=== PATIENT | female | born 1990 | race Caucasian/White ===

== ENCOUNTER 2019-04-04 05:43 | Inpatient (IN) ==
--- NOTE | 2019-04-03 18:11 | History & Physical Report ---
Date of Service April 03, 2019 Assessment & Plan (1) History of pre-eclampsia in prior , currently : (2) History of classical section: IUP at 36 6/7 weeks for repeat section because of prior classical section. The procedure, and it 's risks were reviewed with the patient and all of her questions were answered to her satisfaction. Please see orders for further information. Present on Admission?: Yes History of Present Illness Chief Complaint: For repat at 36 + weeks Primary Care Provider: NO PCP Patient is a 28 yo white female EDC 04/25/19 who presents at 36 6/7 weeks for repeat . Her first delivery was by at 34+ weeks for severe pre-eclampsia and was a classical type incision on the uterus. She received 2 doses of Celestone last week in preparation for the . has been otherwise uncomplicated except for a fluid collection in the placenta which required an MFM consult. Their only recommendation was to do a growth scan at 32 weeks which was normal Allergies Allergy/AdvReac Type Severity Reaction Status Date / Time No Known Allergies Allergy Verified 04/03/19 07:16 Home Medications Home Medications Medication Instructions Recorded Confirmed Type loratadine 10 mg tablet 10 mg PO QAM 03/18/19 04/03/19 History breast pump #1 ea 03/28/19 04/03/19 Rx breast pump #1 ea 03/28/19 04/03/19 Rx [id number] oil 1 tab PO QAM 04/01/19 04/03/19 History [ Gummy] aspirin [Aspir-81] 81 mg PO QAM 04/01/19 04/03/19 History Patient History Medical History (Updated 04/01/19 @ 11:10 by Marli Lui RN) Abnormal biochemical finding on screening of mother PT UNAWARE Anxiety Encounter for anatomic survey Pre-eclampsia HX UTI (urinary tract infection) Varicella Yeast infection RESOLVED Surgical History (Updated 04/01/19 @ 11:01 by Marli Lui RN) S/P X1 Social History (Updated 11/29/18 @ 15:25 by Amelia Dwyer) Preferred Language: Welsh Communication Ability: Effective Wrapper Operator Required: No Beliefs That Will Affect Care: None marital status: Single marital status details: Vitaly Singh (30) [phone] Current Living Situation: Alone Current Living Situation Comment: cat- pt not changing cat litter. current occupational status: employed current occupation: storage worker @ [employer] Feels Safe at Home: Yes Smoking Status: Former smoker Tobacco Type: cigarettes ; Second Hand Exposure: No ; Hx Alcohol Use: No Hx Substance Use: No Review of Systems All systems reviewed & are unremarkable except as noted in HPI & below Physical Exam Constitutional: WD/WN, vitals as above Respiratory: normal respiratory effort, lungs clear to auscultation Cardiovascular: RRR, no murmur, no edema Psychiatric: A+Ox3, euthymic affect Genitourinary: OB Exam Abdomen: + fundal height (36 cm), + heart tones (145) and + vertex cervix exam deferred. Coding Level of Care Code None Diagnoses History of pre-eclampsia in prior , currently O09.299 History of classical section Z98.891
[2019-04-04] MEDS ORDERED: LACTATED RINGER'S 1,000 ML IV SCH ×4 (06:00→12:14)
[2019-04-04] MEDS ORDERED: CITRIC ACID/SODIUM CITRATE 15 ML UDC PO SCH (06:00)
[2019-04-04] MEDS ORDERED: CEFAZOLIN 2000MG 2,000 MG/15 ML SYR IV SCH ×2 (06:00→06:30)
[2019-04-04 06:20] LABS: Basophils # (auto) 0.02 K/uL (0-0.2); Basophils % (auto) 0.2 %; Eosinophils # (auto) 0.14 K/uL (0-0.5); Eosinophils % (auto) 1.4 %; Hematocrit (blood only) 31.7 % (37-47); Hemoglobin 10.8 g/dL (12.0-16.0); Immature Granulocytes # (auto) 0.12 K/uL (0.00-0.02); Immature Granulocytes % (auto) 1.2 %; Lymphocytes # (auto) 3.04 K/uL (1.2-3.4); Lymphocytes % (auto) 29.7 %; Mean Corpuscular Hemoglobin 32.9 pg (25-34); Mean Corpuscular Volume 96.6 fL (80-100); Mean Platelet Volume 10.4 fL (7.4-10.4); Monocytes # (auto) 1.24 K/uL (0.11-0.59); Monocytes % (auto) 12.1 %; Neutrophils # (auto) 5.69 K/uL (1.4-6.5); Neutrophils % (auto) 55.4 %; Platelet Count 168 K/uL (130-400); RDW Coefficient of Variation 13.8 % (11.5-14.5); RDW Standard Deviation 48.8 fL (36.4-46.3); Red Blood Count 3.28 M/uL (4.2-5.4); White Blood Count 10.25 K/uL (4.8-10.8)
[2019-04-04 06:24] LABS: Appearance Urine Cloudy (Clear); Bacteria Urine Automated 1+ (Negative); Bilirubin Urine Negative (Negative); Blood Urine Negative (Negative); Color Urine Yellow; Epithelial Cell Urine Auto >30 /lpf (0-5); Glucose Urine UA Negative (Negative); Ketones Urine Negative (Negative); Leukocyte Esterase Urine Negative (Negative); Nitrite Urine Negative (Negative); Protein Urine Negative (Negative); RBC Urine Automated 0-4 /hpf (0-4); Specific Gravity Urine 1.024 (1.000-1.030); Urobilinogen Urine Negative (Negative)
[2019-04-04 06:25] LABS: Mean Corpuscular Hgb Conc 34.1 g/dL (32-36)
--- NOTE | 2019-04-04 07:22 | History & Physical Bridge Note ---
Date of Service April 04, 2019 History & Physical Bridge Note I have examined the patient, reviewed the History & Physical and in the interval since the performance of the History & Physical I have noted the following changes of clinical significance: no changes noted
--- NOTE | 2019-04-04 07:30 | Anesthesiology Consultation ---
Date of Service April 04, 2019 Assessment & Plan (1) Encounter for pre-operative examination: Chart Review Chart Review: Acceptable Risk for Surgery and Patient NOT seen in Pre Admission Testing Consults Requested none ASA ASA2 Proposed Anesthesia Anesthesia Type: Spinal Risk / Benefits Reviewed With: PT / POA / Parent / Guardian, Accepts Plan and Informed Consent Obtained History Surgery Operation Date: 04/04/19 07:30 Proposed Procedures p Section in - Mary Levi MD, FACOG Height/Weight Height: 5 ft 1 in Weight: 67.585 kg Allergies Allergy/AdvReac Type Severity Reaction Status Date / Time No Known Allergies Allergy Verified 04/04/19 05:51 Medications Home Medications Medication Instructions Recorded Confirmed Last Taken loratadine 10 mg tablet 10 mg PO QAM 03/18/19 04/04/19 04/03/19 08:00 breast pump #1 ea 03/28/19 04/03/19 Unknown breast pump #1 ea 03/28/19 04/03/19 Unknown [id number] oil 1 tab PO QAM 04/01/19 04/04/19 04/03/19 08:00 [ Gummy] aspirin [Aspir-81] 81 mg PO QAM 04/01/19 04/04/19 04/03/19 08:00 NPO Date Last Intake of Fluids: 04/03/19 Time Last Intake of Fluids: 22:00 Date Last Intake of Solids: 04/03/19 Time Last Intake of Solids: 20:00 Past Medical History Medical History Abnormal biochemical finding on screening of mother PT UNAWARE Anxiety Encounter for anatomic survey Pre-eclampsia HX UTI (urinary tract infection) Varicella Yeast infection RESOLVED Exercise / Class Metabolic Activity II 4-5 Yardwork/Stairs/Walk up hill Past Family History Family History Father Heart disease Past Surgical History Surgical History S/P X1 Past Anesthesia History No Hx of Anesthesia Complications and No Family Hx of Anesthesia Complications History of PONV No Hx of PONV and No Hx of Motion Sickness Social History Smoking Status: Former smoker tobacco type: cigarettes Do You Dip or Chew Tobacco: No Smoking End Date: "a few months ago" Hx Alcohol Use: No Hx Substance Use: No substance use type: does not use Physical Exam Vital Signs Last Vital Signs Temp 36.6 C 04/04/19 05:53 Pulse 93 H 04/04/19 07:24 Resp 18 04/04/19 05:53 BP 142/94 H 04/04/19 07:24 ENMT Mouth: no dentition abnormality Thyromental Distance: > or= 3.5 Finger Breadths Mallampati Class: II Neck normal visual inspection Respiratory normal respiratory effort Auscultation: lungs clear to auscultation bilaterally Cardiovascular Rate/Rhythm: regular rate and regular rhythm Psychiatric Orientation: alert Testing Laboratory Results 04/04/19 06:03 Urine Color Yellow 04/04/19 05:59 Urine Appearance Cloudy (Clear) A 04/04/19 05:59 Urine pH 6.0 (4.5-7.5) 04/04/19 05:59 Ur Specific [place] 1.024 (1.000-1.030) 04/04/19 05:59 Urine Protein Negative (Negative) 04/04/19 05:59 Urine Glucose (UA) Negative (Negative) 04/04/19 05:59 Urine Ketones Negative (Negative) 04/04/19 05:59 Urine Nitrite Negative (Negative) 04/04/19 05:59 Ur Leukocyte Esterase Negative (Negative) 04/04/19 05:59 Urine WBC (Auto) 1-5 /hpf (0-5) 04/04/19 05:59 Urine RBC (Auto) 0-4 /hpf (0-4) 04/04/19 05:59 U Hyaline Cast (Auto) 1-5 /lpf (0-5) 04/04/19 05:59 U Epithel Cells (Auto) >30 /lpf (0-5) H 04/04/19 05:59 Urine Bacteria (Auto) 1+ (Negative) H 04/04/19 05:59 Blood Type O Positive 04/04/19 06:03 Antibody Screen NEGATIVE 04/04/19 06:03
[2019-04-04] MEDS ORDERED: fentaNYL citrate 100 MCG/2 ML VIAL ONE (07:32)
[2019-04-04] MEDS ORDERED: MoRPHine SULFATE PF 1 MG/ML 10 ML AMP/VIAL ONE (07:32)
[2019-04-04] MEDS ORDERED: ONDANSETRON INJ 2 MG/ML 2 ML VIAL ONE (08:24)
[2019-04-04] MEDS ORDERED: PHENYLEPHRINE 100MCG/ML 5ML SYR ONE (08:24)
[2019-04-04] MEDS ORDERED: OXYTOCIN 10 UNITS/ML VIAL ONE (08:24)
[2019-04-04] MEDS ORDERED: KETOROLAC 30 MG/ML VIAL ONE (08:24)
--- NOTE | 2019-04-04 08:43 | Post Operative Brief Note ---
PG Immediate Post Op with CF Date of Surgery April 04, 2019 Pre & Post Diagnosis IUP at 36 + weeks-prior classical section post-op diagnosis- same plus delivery of viable female infant Operation Date: 04/04/19 07:30 <No data on this case meets the specified criteria> I identified the patient and participated in the time-out.: Yes Procedure Low Operation Date: 04/04/19 07:30 <No data on this case meets the specified criteria> low transverse section Surgeon Mary Levi MD, FACOG Business Analyst Intern Valerio Bui MD Estimated Blood Loss 500 Findings Consistent with Post-Op Diagnosis
[2019-04-04] MEDS ORDERED: DiphenhydrAMINE HCL 50 MG/ML VIAL IV PRN (08:53)
[2019-04-04] MEDS ORDERED: MoRPHine SULFATE PF 1 MG/ML 10 ML AMP/VIAL INT SPINAL ONE (08:53)
[2019-04-04] MEDS ORDERED: MoRPHine SULFATE 2 MG/ML CARP IV PRN (08:53)
[2019-04-04] MEDS ORDERED: MEPERIDINE HCL 25 MG/ML CARP IV PRN (08:53)
[2019-04-04] MEDS ORDERED: HYDROmorphone INJ 0.5 MG/0.5 ML SYR IV PRN (08:53)
[2019-04-04] MEDS ORDERED: PROMETHAZINE HCL 6.25 MG in SODIUM CHLORIDE 0.9% 50 ML IV PRN (08:53)
[2019-04-04] MEDS ORDERED: NALOXONE HCL 0.4 MG/1 ML VIAL/CARP IV PRN (08:53)
[2019-04-04] MEDS ORDERED: NALOXONE HCL 1 MG in SODIUM CHLORIDE 0.9% 1000ML 1,000 ML IV PRN (08:53)
[2019-04-04] MEDS ORDERED: LACTATED RINGER'S 500 ML IV PRN (08:53)
[2019-04-04] MEDS ORDERED: ONDANSETRON INJ 2 MG/ML 2 ML VIAL IV PRN (08:53)
[2019-04-04] MEDS ORDERED: NALBUPHINE HCL INJ 10 MG/ML AMP IV PRN (08:53)
[2019-04-04] MEDS ORDERED: ePHEDrine sulfate 50 MG/ML AMP IV PRN (08:53)
[2019-04-04] MEDS ORDERED: NALOXONE HCL 0.08 MG in SYRINGE 1.8 ML IV PRN (08:53)
--- NOTE | 2019-04-04 08:55 | Anesthesiology Progress Note ---
Date of Service April 04, 2019 Anesthesia Post Procedure Vital Signs Vital Signs: Temp Pulse Resp BP Pulse Ox 04/04/19 08:48 69 113/64 99 04/04/19 07:24 93 H 142/94 H 04/04/19 07:14 81 142/94 H 04/04/19 07:04 85 139/96 04/04/19 06:55 82 134/93 04/04/19 06:25 88 142/86 H 04/04/19 06:04 90 142/94 H 04/04/19 05:53 36.6 C 93 H 18 142/93 H Transfer of Care Handoff Completed per policy Notes Mental Status: alert / awake / arousable Nausea / Vomiting: adequately controlled Pain: adequately controlled Airway Patency, RR, SpO2: stable & adequate BP & HR: stable & adequate Hydration State: stable & adequate Neuraxial Anesthesia: was administered and sensory block is resolving Anesthetic Complications: no major complications apparent and Pt Satisfied with anesthetic care
[2019-04-04] MEDS ORDERED: NO NARCOTICS OR SEDATIVES SCH (09:00)
[2019-04-04] MEDS ORDERED: SODIUM CHLORIDE 0.9% 1000ML 1,000 ML IV SCH (09:00)
[2019-04-04] MEDS ORDERED: DC INTRASPINAL MORPHINE SCH (09:00)
[2019-04-04] MEDS ORDERED: METHYLERGONOVINE MALEATE 0.2 MG/ML AMP ONE (09:05)
[2019-04-04] MEDS ORDERED: miSOPROStoL 200 MCG TAB ONE (09:34)
[2019-04-04] MEDS ORDERED: miSOPROStoL 200 MCG TAB PR ONE (09:35)
[2019-04-04] MEDS ORDERED: OXYTOCIN 30 UNITS/500ML NSS ONE (10:08)
[2019-04-04] MEDS ORDERED: SODIUM CHLORIDE 0.9% 250 ML IV PRN (10:25)
[2019-04-04 10:39] LABS: Hematocrit (blood only) 27.4 % (37-47); Hemoglobin 9.3 g/dL (12.0-16.0)
--- NOTE | 2019-04-04 10:40 | Operative Report ---
DATE OF OPERATION: 04/04/2019 SURGEON: Dr. Mary Fermin. INTERPRETER: Valerio Bui, PGY-1. PREOPERATIVE DIAGNOSES: Intrauterine at 36 and 6/7 weeks, history of prior classical section. POSTOPERATIVE DIAGNOSES: Intrauterine at 36 and 6/7 weeks, history of prior classical section. Delivery of a viable female , 6 pounds 6 ounces, Apgars 9 and 9. PROCEDURE: Low transverse section. ESTIMATED BLOOD LOSS: 500 mL. HISTORY: The patient is a 28-year-old 2, para 0-1-0-1 white female, EDC of 04/25/2019, who presents for a section following a prior classical section done at 34 weeks with her first because of severe preeclampsia. She received Celestone 2 doses last week and she presents for repeat section. She understands the risks of procedure and is willing to proceed. GROSS FINDINGS: Uterus is gravid and consistent with a term in size. Bilateral ovaries and fallopian tubes are grossly normal. DESCRIPTION OF PROCEDURE: After the patient received adequate subarachnoid block, she was prepped and draped in the usual sterile fashion. A low transverse skin incision was made through her prior scar and carried to the fascia with the same scalpel. The fascial incision was then extended with Back scissors. The edges were then grasped with Aquilino clamps and the underlying rectus muscles bluntly and sharply dissected off of the overlying fascia. The rectus muscles were bluntly divided along the midline and the peritoneum was entered bluntly. The lower uterine segment was noted to be quite thin. After taking down the bladder flap and placed behind the bladder blade, the uterus was entered with the scalpel and extended transversely. Clear fluid was obtained. The infant was delivered from the vertex presentation with moderate fundal pressure. There was spontaneous crying and the infant was moving all 4 limbs. The cord was clamped and cut and handed off to Dr. Cannon, who was in attendance as trademark paralegal. The placenta was then expressed intact, although the uterus inverted upon delivering the placenta. The uterus was placed back in its normal anatomic position after removing the placenta. The uterus was then firm particularly after 1 dose of intramural Pitocin. The uterus was then closed in 2 layers with a running locking imbricating fashion with 0 Monocryl. There was single bleeding site in the middle of the uterus which was controlled with 2 [id number] stitches of 0 Monocryl. The uterus was placed back in the abdominal cavity. Hemostasis was noted to be excellent. The posterior cul-de-sac was irrigated with a small amount of normal saline solution. The incision was examined once more and continued to have excellent hemostasis. The rectus muscles were brought together on the midline with individual stitches of 0 Monocryl. The fascia was closed in a running fashion with 0 Vicryl. After irrigating the adipose layer, the skin incision was closed in a subcuticular fashion with 4-0 Vicryl. Urine was clear at the end of the case. The patient tolerated the procedure well. I attest to the content of the Intraoperative Record and any orders documented therein. Any exception s are noted below.
[2019-04-04] MEDS ORDERED: cefOXitin 2,000 MG in DEXTROSE 5% 50 ML IV SCH (11:00)
--- NOTE | 2019-04-04 11:17 | Obstetrical Progress Note ---
Date of Service April 04, 2019 Subjective in the immediate time period, vaginal bleeding was moderate with clots. AFter increasing IV dilute pitocin, 800mcg cytotec rectally, IM methergine, bleeding was still large. EBL was 800cc. cervix exam was noted to have no retained clot. DEcision was then made to place a Bakri Balloon. Under direct visualization, the Bakri balloon was placed into the fundus of the uterus after 500cc of sterile water were palced, the bleeding slowed to accept able amount. Patient tolerated the procedure well. Hgb is now 9.0 - it was 10.9 pre-operatively. Results & Data Vital Signs (Past 12 Hours) Vital Signs Temp Pulse Resp BP Pulse Ox 04/04/19 11:11 88 91 04/04/19 11:08 81 116/59 L 100 04/04/19 11:05 97 H 92 04/04/19 11:03 73 100 04/04/19 10:59 78 92 04/04/19 10:58 76 99 04/04/19 10:57 80 127/74 04/04/19 10:54 85 92 04/04/19 10:53 85 95 04/04/19 10:48 71 100 04/04/19 10:43 96 H 96 04/04/19 10:38 70 99 04/04/19 10:37 79 124/64 04/04/19 10:33 80 119/74 100 04/04/19 10:28 75 99 04/04/19 10:27 71 116/78 04/04/19 10:23 78 93 04/04/19 10:18 97 H 120/89 98 04/04/19 10:15 86 122/81 04/04/19 10:14 96 H 92 04/04/19 10:13 94 H 99 04/04/19 10:10 61 110/70 04/04/19 10:08 68 100 04/04/19 10:07 62 108/65 04/04/19 10:03 71 99 04/04/19 09:58 64 112/57 L 99 04/04/19 09:56 104 H 93 04/04/19 09:53 83 99 04/04/19 09:48 72 99 04/04/19 09:43 73 99 04/04/19 09:41 80 126/79 04/04/19 09:38 97 H 20 126/79 92 04/04/19 09:35 84 92 04/04/19 09:33 77 100 04/04/19 09:28 96 H 20 129/71 96 04/04/19 09:25 74 88 L 04/04/19 09:23 82 98 04/04/19 09:18 72 18 116/76 100 04/04/19 09:13 72 99 04/04/19 09:08 73 20 114/66 99 04/04/19 09:03 68 98 04/04/19 08:58 77 20 114/72 100 04/04/19 08:53 93 H 98 04/04/19 08:48 97.7 F 75 21 113/64 99 04/04/19 07:24 93 H 142/94 H 04/04/19 07:14 81 142/94 H 04/04/19 07:04 85 139/96 04/04/19 06:55 82 134/93 04/04/19 06:25 88 142/86 H 04/04/19 06:04 90 142/94 H 04/04/19 05:53 97.9 F 93 H 18 142/93 H PG Care Time/CCT Total # of Minutes Spent Total Time Spent with Patient: Total time spent is greater than 50% in coordination of care (as documented) at patient's floor/unit and/or counseling patient: Coding Level of Care Code None
[2019-04-04] MEDS ORDERED: OXYTOCIN 10 UNITS/ML VIAL IM ONE (11:44)
[2019-04-04] MEDS ORDERED: BENZOCAINE 20% AER SPR 82.5 GM CAN EXT PRN (12:14)
[2019-04-04] MEDS ORDERED: DIPHTHERIA/TETANUS/PERTUSSIS 0.5 ML SYR/VIAL IM ONE (12:14)
[2019-04-04] MEDS ORDERED: SENNA 8.6 MG TAB PO PRN (12:14)
[2019-04-04] MEDS ORDERED: SUPERCREAM 0.870% 15 GM JAR EXT PRN (12:14)
[2019-04-04] MEDS ORDERED: MAGNESIUM HYDROXIDE SUSP 30 ML UDC PO PRN (12:14)
[2019-04-04] MEDS ORDERED: HYDROCORTISONE ACETATE 25 MG SUPP PR PRN (12:14)
[2019-04-04] MEDS: OXYTOCIN 20 UNITS in LACTATED RINGER'S 1,000 ML IV SCH ×2 (13:48→22:14)
[2019-04-04] MEDS: SIMETHICONE 80 MG CHEW PO SCH ×3 (14:05→20:56)
[2019-04-04 15:32] LABS: Hematocrit (blood only) 20.5 % (37-47); Hemoglobin 7.3 g/dL (12.0-16.0)
[2019-04-04] MEDS: KETOROLAC 30 MG/ML VIAL IV PRN ×2 (17:00→23:57)
[2019-04-04 18:14] LABS: Hematocrit (blood only) 19.1 % (37-47); Hemoglobin 6.7 g/dL (12.0-16.0)
[2019-04-04] MEDS: cefOXitin 2,000 MG in DEXTROSE 5% 50 ML IV SCH (20:17)
[2019-04-04] MEDS: DOCUSATE SODIUM 100 MG CAP PO SCH (20:56)
[2019-04-05] MEDS: cefOXitin 2,000 MG in DEXTROSE 5% 50 ML IV SCH ×2 (02:27→08:00)
[2019-04-05] MEDS ORDERED: ONDANSETRON INJ 2 MG/ML 2 ML VIAL IV PRN (02:54)
[2019-04-05] MEDS ORDERED: MEPERIDINE HCL 50 MG/ML CARP IV PRN (02:54)
[2019-04-05] MEDS ORDERED: KETOROLAC 30 MG/ML VIAL IV PRN (02:54)
[2019-04-05] MEDS ORDERED: PROMETHAZINE HCL 25 MG in SODIUM CHLORIDE 0.9% 50 ML IV PRN (02:54)
[2019-04-05] MEDS ORDERED: DiphenhydrAMINE HCL 50 MG/ML VIAL IV PRN (02:54)
--- NOTE | 2019-04-05 06:25 | Obstetrical Progress Note ---
Date of Service <Valerio Bui MD - Last Filed: 04/05/19 07:46> April 05, 2019 Assessment & Plan <Valerio Bui MD - Last Filed: 04/05/19 07:46> (1) : POD#1 - Bakri balloon placed on 04/04 @10AM with 500cc infused in balloon - will attempt removal after 24hrs - having scant pink discharge - Hgb downtrended this AM to 6.5, with stabilized drop from 1800 with a hgb 6.7 - despite (2) hemorrhage: Subjective <Valerio Bui MD - Last Filed: 04/05/19 07:46> Ms. Erwin is a 28 y/o female ; POD #1 following repeat deli very at 37 weeks due to previous being a classical incision; in the immediate post- setting had continued vaginal bleeding and had a Bakri placed at 10am on 04/04; Over night continued to have some scant bloody vaginal discharge Review of Systems Constitutional: denies fever; chills; sweats; headache Respiratory: denies shortness of breath, difficulty breathing Cardiac: denies chest pain; palpitations; chest pressure Breast: denies breast pain : denies dysuria Physical Exam <Valerio Bui MD - Last Filed: 04/05/19 07:46> General: alert; oriented; no acute distress Cardiac: RRR; no m/g/r Respiratory: CTAB a/p; no wheezes/rales/rhonchi; no increased work of breathing; symmetrical chest rise; no respiratory distress Abdomen: soft; ND; bowel sounds positive Uterus: uterine fundus tender; palpable at umbilicus Lower extrem: no lower extremity edema or swelling; no deep calf pain; Chris's sign negative b/l Results & Data <Valerio Bui MD - Last Filed: 04/05/19 07:46> Vital Signs (Past 12 Hours) Vital Signs Temp Pulse Resp BP Pulse Ox 04/05/19 06:20 69 97 04/05/19 06:15 72 97 04/05/19 06:10 66 98 04/05/19 06:05 68 99 04/05/19 06:00 77 99 04/05/19 05:55 78 99 04/05/19 05:50 72 97 04/05/19 05:45 71 96 04/05/19 05:40 72 97 04/05/19 05:35 73 96 04/05/19 05:30 75 97 04/05/19 05:25 75 96 04/05/19 05:20 74 96 04/05/19 05:15 71 97 04/05/19 05:10 79 98 04/05/19 05:05 74 97 04/05/19 05:00 87 97 04/05/19 04:55 68 98 04/05/19 04:53 91 H 93 04/05/19 04:50 70 96 04/05/19 04:45 70 96 04/05/19 04:40 89 96 04/05/19 04:35 69 97 04/05/19 04:30 75 98 04/05/19 04:25 72 97 04/05/19 04:20 68 97 04/05/19 04:15 69 97 04/05/19 04:10 71 97 04/05/19 04:05 66 97 04/05/19 04:00 67 97 04/05/19 03:55 70 97 04/05/19 03:53 36.9 C 16 99 04/05/19 03:50 69 127/70 98 04/05/19 03:45 83 99 04/05/19 03:40 68 96 04/05/19 03:35 68 97 04/05/19 03:30 66 98 04/05/19 03:25 74 96 04/05/19 03:20 75 96 04/05/19 03:15 73 97 04/05/19 03:10 69 97 04/05/19 03:05 68 98 04/05/19 03:00 71 97 04/05/19 02:55 69 97 04/05/19 02:50 71 97 04/05/19 02:45 73 97 04/05/19 02:40 72 99 04/05/19 02:35 70 97 04/05/19 02:31 18 97 04/05/19 02:30 68 97 04/05/19 02:25 71 96 04/05/19 02:20 70 96 04/05/19 02:15 70 96 04/05/19 02:11 89 92 04/05/19 02:10 68 96 04/05/19 02:08 18 99 04/05/19 02:05 80 99 0229/20 02:00 69 97 04/05/19 01:57 18 98 04/05/19 01:55 78 98 04/05/19 01:50 66 97 04/05/19 01:45 73 96 04/05/19 01:40 79 97 04/05/19 01:35 73 96 04/05/19 01:30 74 97 04/05/19 01:25 83 96 04/05/19 01:20 75 96 04/05/19 01:15 74 97 04/05/19 01:10 75 97 04/05/19 01:05 74 97 04/05/19 01:01 16 98 04/05/19 01:00 75 98 04/05/19 00:58 78 122/65 04/05/19 00:55 86 98 04/05/19 00:50 87 97 04/05/19 00:45 81 97 04/05/19 00:40 77 97 04/05/19 00:35 76 97 04/05/19 00:30 80 96 04/05/19 00:25 78 97 04/05/19 00:20 73 111/64 96 04/05/19 00:15 74 97 04/05/19 00:10 74 97 04/05/19 00:05 75 97 04/05/19 00:00 80 16 99 04/04/19 23:55 98 H 99 04/04/19 23:50 81 99 04/04/19 23:45 74 97 04/04/19 23:40 74 97 04/04/19 23:35 36.9 C 90 16 97 04/04/19 23:30 73 96 04/04/19 23:25 74 97 04/04/19 23:20 77 120/68 96 04/04/19 23:15 73 96 04/04/19 23:10 70 97 04/04/19 23:05 69 98 04/04/19 23:00 81 97 04/04/19 22:55 80 99 04/04/19 22:50 79 16 99 04/04/19 22:45 76 98 04/04/19 22:40 88 98 04/04/19 22:35 84 98 04/04/19 22:30 70 96 04/04/19 22:25 68 97 04/04/19 22:20 70 114/65 97 04/04/19 22:17 16 98 04/04/19 22:15 69 98 04/04/19 22:10 69 98 04/04/19 22:05 72 97 04/04/19 22:00 70 98 04/04/19 21:55 76 98 04/04/19 21:50 75 20 99 04/04/19 21:46 74 91 04/04/19 21:45 72 97 04/04/19 21:40 75 98 04/04/19 21:35 80 100 04/04/19 21:30 70 98 04/04/19 21:25 74 98 04/04/19 21:20 71 112/66 98 04/04/19 21:15 79 99 04/04/19 21:10 69 99 04/04/19 21:05 82 98 04/04/19 21:00 91 H 99 04/04/19 20:55 83 99 04/04/19 20:50 79 99 04/04/19 20:45 82 99 04/04/19 20:40 78 98 04/04/19 20:35 83 100 04/04/19 20:30 90 100 04/04/19 20:25 83 100 04/04/19 20:20 86 18 99 04/04/19 20:15 81 100 04/04/19 20:10 76 100 04/04/19 20:05 74 100 04/04/19 20:00 74 100 04/04/19 19:55 76 100 04/04/19 19:50 84 99 04/04/19 19:45 82 100 04/04/19 19:42 90 92 04/04/19 19:40 77 100 04/04/19 19:35 82 99 04/04/19 19:30 79 100 04/04/19 19:25 96 H 99 04/04/19 19:21 36.9 C 77 18 115/53 L 04/04/19 19:20 76 18 99 04/04/19 19:15 95 H 97 04/04/19 19:10 87 99 04/04/19 19:05 81 98 04/04/19 19:00 78 99 04/04/19 18:55 77 100 04/04/19 18:50 95 H 100 04/04/19 18:45 85 100 04/04/19 18:40 82 100 04/04/19 18:35 97 H 100 04/04/19 18:30 78 100 04/04/19 18:25 80 99 <Mary Levi MD, FACOG - Last Filed: 04/05/19 08:32> Co-Signing Physician Notes Resident Physician Supervision Note: I interviewed and examined the patient. Discussed with Dr. Bui and agree with findings and plan as documented in the note. Any exceptions or clarifications are listed here: [None] Documented By: Mary Levi MD, FACOG Resident Activity Tracking <Valerio Bui MD - Last Filed: 04/05/19 07:46> Resident Involvement: Resident Care Provided Care Provided: OB Delivery
[2019-04-05 06:38] LABS: Hematocrit (blood only) 18.4 % (37-47); Hemoglobin 6.5 g/dL (12.0-16.0); Mean Corpuscular Hemoglobin 33.2 pg (25-34); Mean Corpuscular Hgb Conc 35.3 g/dL (32-36); Mean Corpuscular Volume 93.9 fL (80-100); Mean Platelet Volume 10.1 fL (7.4-10.4); Platelet Count 140 K/uL (130-400); RDW Coefficient of Variation 13.8 % (11.5-14.5); Red Blood Count 1.96 M/uL (4.2-5.4); White Blood Count 13.01 K/uL (4.8-10.8)
[2019-04-05] MEDS: OXYTOCIN 20 UNITS in LACTATED RINGER'S 1,000 ML IV SCH (06:45)
[2019-04-05 06:50] LABS: Basophils # (auto) 0.02 K/uL (0-0.2); Basophils % (auto) 0.2 %; Eosinophils # (auto) 0.19 K/uL (0-0.5); Eosinophils % (auto) 1.5 %; Immature Granulocytes # (auto) 0.09 K/uL (0.00-0.02); Immature Granulocytes % (auto) 0.7 %; Lymphocytes # (auto) 3.06 K/uL (1.2-3.4); Lymphocytes % (auto) 23.5 %; Monocytes % (auto) 7.7 %; Neutrophils # (auto) 8.65 K/uL (1.4-6.5); Neutrophils % (auto) 66.4 %; RBC Morphology Unremarkable
[2019-04-05] MEDS: DOCUSATE SODIUM 100 MG CAP PO SCH ×2 (08:18→20:11)
[2019-04-05] MEDS: SIMETHICONE 80 MG CHEW PO SCH ×4 (08:19→20:11)
[2019-04-05] MEDS: FERROUS SULFATE 325 MG TAB PO SCH (08:19)
[2019-04-05] MEDS: PRENATAL VITAMIN 1 TAB PO SCH (08:19)
--- NOTE | 2019-04-05 12:56 | Anesthesiology Progress Note ---
Date of Service April 05, 2019 Anesthesia Post Procedure Vital Signs Vital Signs: Temp Pulse Resp BP Pulse Ox 04/05/19 12:50 86 97 04/05/19 12:45 88 99 04/05/19 12:40 82 97 04/05/19 12:38 97 H 94 04/05/19 12:35 81 97 04/05/19 12:30 82 97 04/05/19 12:25 81 96 04/05/19 12:20 91 H 98 04/05/19 12:15 89 98 04/05/19 12:10 80 98 04/05/19 12:05 79 98 04/05/19 12:00 86 98 04/05/19 11:55 85 96 04/05/19 11:50 91 H 97 04/05/19 11:45 101 H 97 04/05/19 11:40 88 96 04/05/19 11:35 73 97 04/05/19 11:30 71 97 04/05/19 11:25 75 97 04/05/19 11:20 71 98 04/05/19 11:15 72 97 04/05/19 11:10 74 99 04/05/19 11:05 80 97 04/05/19 11:04 36.9 C 20 04/05/19 11:00 86 97 04/05/19 10:58 95 H 128/71 04/05/19 10:55 97 H 96 04/05/19 10:50 77 95 04/05/19 10:45 75 95 04/05/19 10:44 78 94 04/05/19 10:40 85 97 04/05/19 10:37 82 94 04/05/19 10:35 74 96 04/05/19 10:30 73 95 04/05/19 10:25 83 95 04/05/19 10:24 74 94 04/05/19 10:20 75 95 04/05/19 10:15 78 95 04/05/19 10:11 76 94 04/05/19 10:10 75 96 04/05/19 10:05 92 H 94 04/05/19 10:04 72 93 04/05/19 10:00 74 96 04/05/19 09:57 86 94 04/05/19 09:55 76 96 04/05/19 09:50 82 95 04/05/19 09:45 78 97 04/05/19 09:40 88 98 04/05/19 09:35 86 99 04/05/19 09:30 68 98 04/05/19 09:25 79 98 04/05/19 09:20 80 99 04/05/19 09:15 71 98 04/05/19 09:10 83 98 04/05/19 09:05 75 97 04/05/19 09:00 75 98 04/05/19 08:55 85 98 04/05/19 08:50 82 98 04/05/19 08:45 85 98 04/05/19 08:40 83 98 04/05/19 08:35 75 97 04/05/19 08:30 77 97 04/05/19 08:25 71 97 04/05/19 08:20 88 96 04/05/19 08:15 82 98 04/05/19 08:10 74 96 04/05/19 08:05 71 96 04/05/19 08:00 71 96 04/05/19 07:55 76 97 04/05/19 07:50 70 97 04/05/19 07:45 71 96 04/05/19 07:40 70 97 04/05/19 07:35 96 04/05/19 07:30 74 96 04/05/19 07:25 74 96 04/05/19 07:20 74 97 04/05/19 07:15 74 96 04/05/19 07:10 69 96 04/05/19 07:07 36.7 C 20 04/05/19 07:05 76 96 04/05/19 07:00 73 125/78 98 04/05/19 06:56 81 94 04/05/19 06:55 77 96 04/05/19 06:50 65 97 04/05/19 06:45 69 98 04/05/19 06:40 71 97 04/05/19 06:35 72 97 04/05/19 06:30 73 96 04/05/19 06:25 90 98 04/05/19 06:20 69 97 04/05/19 06:15 72 97 04/05/19 06:10 66 98 04/05/19 06:05 68 99 04/05/19 06:00 77 99 04/05/19 05:55 78 99 04/05/19 05:50 72 97 04/05/19 05:45 71 96 02/29/20 05:40 72 97 04/05/19 05:35 73 96 04/05/19 05:30 75 97 04/05/19 05:25 75 96 04/05/19 05:20 74 96 04/05/19 05:15 71 97 04/05/19 05:10 79 98 04/05/19 05:05 74 97 04/05/19 05:00 87 97 04/05/19 04:55 68 98 04/05/19 04:53 91 H 93 04/05/19 04:50 70 96 04/05/19 04:45 70 96 04/05/19 04:40 89 96 04/05/19 04:35 69 97 04/05/19 04:30 75 98 04/05/19 04:25 72 97 04/05/19 04:20 68 97 04/05/19 04:15 69 97 04/05/19 04:10 71 97 04/05/19 04:05 66 97 04/05/19 04:00 67 97 04/05/19 03:55 70 97 04/05/19 03:53 36.9 C 16 99 04/05/19 03:50 69 127/70 98 04/05/19 03:45 83 99 04/05/19 03:40 68 96 04/05/19 03:35 68 97 04/05/19 03:30 66 98 04/05/19 03:25 74 96 04/05/19 03:20 75 96 04/05/19 03:15 73 97 04/05/19 03:10 69 97 04/05/19 03:05 68 98 04/05/19 03:00 71 97 04/05/19 02:55 69 97 04/05/19 02:50 71 97 04/05/19 02:45 73 97 04/05/19 02:40 72 99 04/05/19 02:35 70 97 04/05/19 02:31 18 97 04/05/19 02:30 68 97 04/05/19 02:25 71 96 04/05/19 02:20 70 96 04/05/19 02:15 70 96 04/05/19 02:11 89 92 04/05/19 02:10 68 96 04/05/19 02:08 18 99 04/05/19 02:05 80 99 04/05/19 02:00 69 97 04/05/19 01:57 18 98 04/05/19 01:55 78 98 04/05/19 01:50 66 97 04/05/19 01:45 73 96 04/05/19 01:40 79 97 04/05/19 01:35 73 96 04/05/19 01:30 74 97 04/05/19 01:25 83 96 04/05/19 01:20 75 96 04/05/19 01:15 74 97 04/05/19 01:10 75 97 04/05/19 01:05 74 97 04/05/19 01:01 16 98 04/05/19 01:00 75 98 04/05/19 00:58 78 122/65 04/05/19 00:55 86 98 04/05/19 00:50 87 97 04/05/19 00:45 81 97 04/05/19 00:40 77 97 04/05/19 00:35 76 97 04/05/19 00:30 80 96 04/05/19 00:25 78 97 04/05/19 00:20 73 111/64 96 04/05/19 00:15 74 97 04/05/19 00:10 74 97 04/05/19 00:05 75 97 04/05/19 00:00 80 16 99 04/04/19 23:55 98 H 99 04/04/19 23:50 81 99 04/04/19 23:45 74 97 04/04/19 23:40 74 97 04/04/19 23:35 36.9 C 90 16 97 04/04/19 23:30 73 96 04/04/19 23:25 74 97 04/04/19 23:20 77 120/68 96 04/04/19 23:15 73 96 04/04/19 23:10 70 97 04/04/19 23:05 69 98 04/04/19 23:00 81 97 04/04/19 22:55 80 99 04/04/19 22:50 79 16 99 04/04/19 22:45 76 98 04/04/19 22:40 88 98 04/04/19 22:35 84 98 04/04/19 22:30 70 96 04/04/19 22:25 68 97 04/04/19 22:20 70 114/65 97 04/04/19 22:17 16 98 04/04/19 22:15 69 98 04/04/19 22:10 69 98 04/04/19 22:05 72 97 04/04/19 22:00 70 98 04/04/19 21:55 76 98 04/04/19 21:50 75 20 99 04/04/19 21:46 74 91 04/04/19 21:45 72 97 04/04/19 21:40 75 98 04/04/19 21:35 80 100 04/04/19 21:30 70 98 04/04/19 21:25 74 98 04/04/19 21:20 71 112/66 98 04/04/19 21:15 79 99 04/04/19 21:10 69 99 04/04/19 21:05 82 98 04/04/19 21:00 91 H 99 04/04/19 20:55 83 99 04/04/19 20:50 79 99 04/04/19 20:45 82 99 04/04/19 20:40 78 98 04/04/19 20:35 83 100 04/04/19 20:30 90 100 04/04/19 20:25 83 100 04/04/19 20:20 86 18 99 04/04/19 20:15 81 100 04/04/19 20:10 76 100 04/04/19 20:05 74 100 04/04/19 20:00 74 100 04/04/19 19:55 76 100 04/04/19 19:50 84 99 04/04/19 19:45 82 100 04/04/19 19:42 90 92 04/04/19 19:40 77 100 04/04/19 19:35 82 99 04/04/19 19:30 79 100 04/04/19 19:25 96 H 99 04/04/19 19:21 36.9 C 77 18 115/53 L 04/04/19 19:20 76 18 99 04/04/19 19:15 95 H 97 04/04/19 19:10 87 99 04/04/19 19:05 81 98 04/04/19 19:00 78 99 04/04/19 18:55 77 100 04/04/19 18:50 95 H 100 04/04/19 18:45 85 100 04/04/19 18:40 82 100 04/04/19 18:35 97 H 100 04/04/19 18:30 78 100 04/04/19 18:25 80 99 04/04/19 18:20 85 123/68 100 04/04/19 18:15 82 100 04/04/19 18:10 87 100 04/04/19 18:05 82 100 04/04/19 18:00 78 20 100 04/04/19 17:55 87 99 04/04/19 17:50 88 98 04/04/19 17:45 88 99 04/04/19 17:40 103 H 99 04/04/19 17:35 82 100 04/04/19 17:30 79 99 04/04/19 17:25 93 H 99 04/04/19 17:20 84 127/73 100 04/04/19 17:15 92 H 99 04/04/19 17:10 89 99 04/04/19 17:05 91 H 98 04/04/19 17:00 91 H 20 98 04/04/19 16:55 93 H 100 04/04/19 16:50 94 H 99 04/04/19 16:45 106 H 99 04/04/19 16:40 86 98 04/04/19 16:35 106 H 99 04/04/19 16:30 93 H 99 04/04/19 16:25 90 100 04/04/19 16:20 87 118/80 98 04/04/19 16:15 89 99 04/04/19 16:10 87 99 04/04/19 16:05 85 100 04/04/19 16:00 89 21 99 04/04/19 15:55 83 99 04/04/19 15:50 92 H 99 04/04/19 15:45 88 98 04/04/19 15:40 87 99 04/04/19 15:35 95 H 100 04/04/19 15:30 81 98 04/04/19 15:25 89 100 04/04/19 15:22 85 121/71 04/04/19 15:20 82 99 04/04/19 15:15 97 H 100 04/04/19 15:10 86 99 04/04/19 15:05 81 100 04/04/19 15:00 82 20 99 04/04/19 14:55 93 H 98 04/04/19 14:50 85 100 04/04/19 14:48 36.5 C 93 H 20 98 04/04/19 14:47 78 92 04/04/19 14:44 86 100 04/04/19 14:39 96 H 99 04/04/19 14:37 78 93 04/04/19 14:34 91 H 100 04/04/19 14:29 97 H 98 04/04/19 14:24 102 H 96 04/04/19 14:19 94 H 99 04/04/19 14:17 84 114/59 L 04/04/19 14:14 86 99 04/04/19 14:12 94 H 93 04/04/19 14:09 86 99 04/04/19 14:08 84 118/58 L 04/04/19 14:04 87 98 04/04/19 14:02 90 93 04/04/19 13:59 86 98 04/04/19 13:54 84 97 04/04/19 13:49 84 97 04/04/19 13:48 90 128/74 04/04/19 13:44 84 96 04/04/19 13:39 89 98 04/04/19 13:38 86 21 99 04/04/19 13:37 82 128/76 04/04/19 13:34 87 96 04/04/19 13:29 89 96 04/04/19 13:28 94 H 121/64 04/04/19 13:24 87 99 04/04/19 13:19 82 98 04/04/19 13:18 85 115/67 04/04/19 13:14 88 98 04/04/19 13:09 87 99 04/04/19 13:07 82 121/67 04/04/19 13:04 88 97 04/04/19 12:59 83 98 04/04/19 12:58 82 134/63 Pain Intensity Anterior Abdomen: Pain Intensity: 5 Transfer of Care Handoff Completed per policy Notes Mental Status: alert / awake / arousable and participated in evaluation Nausea / Vomiting: adequately controlled Pain: adequately controlled Airway Patency, RR, SpO2: stable & adequate BP & HR: stable & adequate Hydration State: stable & adequate Neuraxial Anesthesia: was administered and sensory block resolved Anesthetic Complications: no major complications apparent and Pt Satisfied with anesthetic care
[2019-04-05] MEDS: IBUPROFEN 600 MG TAB PO PRN ×2 (15:23→22:43)
[2019-04-05] MEDS: OXYCODONE/ACETAMINOPHEN 5mg/325mg TAB PO PRN (15:24)
[2019-04-05] MEDS ORDERED: bisacodyL 5 MG TABEC PO SCH (20:00)
[2019-04-06] MEDS: OXYCODONE/ACETAMINOPHEN 5mg/325mg TAB PO PRN ×3 (02:06→23:38)
[2019-04-06] MEDS ORDERED: bisacodyL 10 MG SUPP PR PRN (07:00)
[2019-04-06 07:51] LABS: Hematocrit (blood only) 18.7 % (37-47); Hemoglobin 6.4 g/dL (12.0-16.0)
--- NOTE | 2019-04-06 08:48 | Obstetrical Progress Note ---
Date of Service April 06, 2019 Assessment & Plan (1) hemorrhage: PPD 2 from LTCS. Course complicated by PPH and is s/p Bakri. Bleeding minimal since. H/H stable at 6.4/18.7. Patient asymptomatic from anemia. Offered blood transfusion for low H/H and strongly recommended that she have a blood transfusion if symptoms develop. Anemia precautions discussed. (2) Supervision of high risk , antepartum: Subjective Ambulation: ambulating normally Voiding: no voiding problems Passing Gas:: Yes Diet Tolerance:: regular diet Lochia:: Moderate Physical Exam Constitutional WD/WN, vitals as above Respiratory normal respiratory effort; no respiratory distress and no labored breathing Gastrointestinal (Abdomen) Inspection/Auscultation: abdomen normal to inspection; abdomen not distended Percussion/Palpation: abdomen soft; abdomen nontender, no guarding and abdomen not rigid Incision healing normally Genitourinary OB Exam Abdomen: + fundal height Fundus: + firm and + relation to umbilicus (Below); not tender and not boggy Results & Data Vital Signs (Past 12 Hours) Vital Signs Temp Pulse Resp BP 04/06/19 00:30 36.8 C 86 18 136/83
[2019-04-06] MEDS: DOCUSATE SODIUM 100 MG CAP PO SCH ×2 (09:04→20:32)
[2019-04-06] MEDS: SIMETHICONE 80 MG CHEW PO SCH ×4 (09:04→20:31)
[2019-04-06] MEDS: FERROUS SULFATE 325 MG TAB PO SCH (09:04)
[2019-04-06] MEDS: PRENATAL VITAMIN 1 TAB PO SCH (09:05)
[2019-04-06] MEDS: IBUPROFEN 600 MG TAB PO PRN ×3 (12:12→23:40)
--- NOTE | 2019-04-07 05:56 | Obstetrical Progress Note ---
Date of Service <Valerio Bui MD - Last Filed: 04/07/19 06:45> April 07, 2019 Assessment & Plan <Valerio Bui MD - Last Filed: 04/07/19 06:45> (1) hemorrhage: POD#3 - s/p Bakri balloon - Hgb 6.4 on 04/05; however patient remains asymptomatic - Vitals stable throughout the night - encourage ambulation, and oral intake - after discharge will have follow-up in 6 weeks (2) : Subjective <Valerio Bui MD - Last Filed: 04/07/19 06:45> Ms. Erwin is a 28 y/o female ; POD #3 following delivery at 37 weeks for previous classical ; doing well this morning; having minimal abdominal cramping/pain; voiding well; tolerating meals overnight; able to ambulate some; having minimal vaginal bleeding/spotting Review of Systems Constitutional: denies fever; chills; sweats; headache Respiratory: denies shortness of breath, difficulty breathing Cardiac: denies chest pain; palpitations; chest pressure Breast: denies breast pain : denies dysuria Physical Exam <Valerio Bui MD - Last Filed: 04/07/19 06:45> General: alert; oriented; no acute distress Cardiac: RRR; no m/g/r Respiratory: CTAB a/p; no wheezes/rales/rhonchi; no increased work of breathing; symmetrical chest rise; no respiratory distress Abdomen: soft; NT/ND; bowel sounds positive Uterus: uterine fundus firm; palpable 3cm below umbilicus Lower extrem: no lower extremity edema or swelling; no deep calf pain; Chris's sign negative b/l Results & Data <Valerio Bui MD - Last Filed: 04/07/19 06:45> Vital Signs (Past 12 Hours) Vital Signs Temp Pulse Resp BP 04/06/19 23:30 36.6 C 83 18 129/88 Laboratory Results 04/06/19 04/04/19 Range/Units 06:19 06:03 Hgb 6.4 L* (12.0-16.0) g/dL Hct 18.7 L* (37-47) % Crossmatch See Detail Medications Administered Current Inpatient Medications Benzocaine (Dermoplast Pain Relieving [place]) 1 appln EXT UD PRN PRN Reason: use on skin as needed Stop: 05/04/19 12:13 Cocaine HCl (Supercream 0.870%) 1 gm EXT UD PRN PRN Reason: hemmorrhoidal inflammation Stop: 04/18/19 12:13 Diphenhydramine HCl (Benadryl Capsule) 25 mg PO QID PRN PRN Reason: Itching Stop: 05/05/19 02:53 Diphenhydramine HCl (Benadryl) 25 mg IV QID PRN PRN Reason: Itching Stop: 05/05/19 02:53 Docusate Sodium (Colace) 100 mg PO DAILY@08, [facility] Stop: 05/04/19 20:59 Last Admin: 04/06/19 20:32 Dose: Not Given Documented by: Ferrous Sulfate (Feosol) 325 mg PO DAILY@08 [facility] Stop: 05/05/19 07:59 Last Admin: 04/06/19 09:04 Dose: 325 mg Documented by: Hydrocortisone (Anusol Hc) 25 mg MO BID PRN PRN Reason: Hemorrhoids Stop: 05/04/19 12:13 Lactated Ringer's (Lr) 1,000 mls @ 125 mls/hr IV .Q8H [place] Stop: 05/04/19 12:13 Promethazine HCl 25 mg/ Sodium (Chloride) 51 mls @ 204 mls/hr IV Q4H PRN PRN Reason: Nausea And Vomiting Stop: 05/05/19 02:53 Ibuprofen (Motrin) 600 mg PO Q4H PRN PRN Reason: Pain Stop: 05/04/19 12:13 Last Admin: 04/06/19 23:40 Dose: 600 mg Documented by: Ketorolac Tromethamine (Toradol) 30 mg IV Q6H PRN PRN Reason: Pain Stop: 04/10/19 02:53 Last Admin: 04/05/19 06:07 Dose: 30 mg Documented by: Magnesium Hydroxide (Milk Of Magnesia) 30 ml PO HS PRN PRN Reason: Constipation Stop: 05/04/19 12:13 Meperidine HCl (Demerol) 50 - 75 mg IV Q4H PRN PRN Reason: Pain Stop: 04/19/19 02:53 Ondansetron HCl (Zofran) 4 mg IV Q4H PRN PRN Reason: Nausea And Vomiting Stop: 05/05/19 02:53 Oxycodone/Acetaminophen (Percocet 5mg/325mg) 0.5 - 1 tab PO Q4H PRN PRN Reason: Pain Stop: 04/19/19 02:53 Last Admin: 04/06/19 23:38 Dose: 1 tab Documented by: Prenat Multivit/[place]/Iron/Folic Ac ( Vitamin) 1 tab PO DAILY@08 [facility] Stop: 05/05/19 07:59 Last Admin: 04/06/19 09:05 Dose: 1 tab Documented by: Sennosides (Senokot) 17.2 mg PO HS PRN PRN Reason: Constipation Stop: 05/04/19 12:13 Simethicone (Mylicon) 80 mg PO DAILY@08,13,17,21 [facility] Stop: 05/04/19 12:59 Last Admin: 04/06/19 20:31 Dose: 80 mg Documented by: <Marcos Ludwig MD - Last Filed: 04/07/19 07:54> Co-Signing Physician Notes Patient seen and evaluated and agree with the above findings and plan. Patient has asymptomatic anemia and declining transfusion. Stable for discharge Resident Activity Tracking <Valerio Bui MD - Last Filed: 04/07/19 06:45> Resident Involvement: Resident Care Provided Care Provided: OB Delivery
[2019-04-07] MEDS: DOCUSATE SODIUM 100 MG CAP PO SCH (08:17)
[2019-04-07] MEDS: FERROUS SULFATE 325 MG TAB PO SCH (08:17)
[2019-04-07] MEDS: SIMETHICONE 80 MG CHEW PO SCH (08:17)
[2019-04-07] MEDS: PRENATAL VITAMIN 1 TAB PO SCH (08:17)
[2019-04-07] MEDS: OXYCODONE/ACETAMINOPHEN 5mg/325mg TAB PO PRN (08:28)
[2019-04-07] MEDS: IBUPROFEN 600 MG TAB PO PRN (08:28)
== END 2019-04-07 14:00 | disposition home or self-care (01) | DRG 787 ==
LOC: 4S1 05:43 → EDSTATUS 07:30 → 4S2 04-05 15:54